=== PATIENT | male | born 1965 | race Caucasian/White ===

== ENCOUNTER 2020-10-23 10:08 | Emergency (ER) | payer OTHER, SELFPAY ==
[2020-10-23 10:09] VITALS: BP 106/85; PULSE 85; RESP 20; TEMP 36.6; O2SAT 97; BMI 45.1
--- NOTE | 2020-10-23 10:20 | ED.VIS.GEN ---
History of Present Illness Chief Complaint: Abscess Informant: Patient Onset: Month(s) Context: Gradual Onset Timing: Continuous Current Severity: Moderate Maximum Severity: Moderate Narrative: The patient is a 55-year-old male with history of hepatitis C who presents to the emergency department with bleeding skin tag. Patient states he has had a 2 cm area on his back for years. He states that over the past month, he has had more bleeding. He states every time he bumps it or moves, the area will start to bleed. He denies any fevers or chills. He denies any systemic complaints. He states [facility], but has not been able to have another follow-up appointment. He is otherwise been in his normal state of health. Prior similar symptoms: No Recent Illness/Hospitalization: No Past Medical History - Allergies and Home Meds Allergies/Adverse Reactions: Allergies amoxicillin Allergy (Verified 10/23/20 10:12) Rash cephalexin [From Keflex] Allergy (Verified 10/23/20 10:12) Hives metformin Allergy (Verified 10/23/20 10:12) NEEDS FOLLOW-UP [facility] Phys[facility]: [facility] [Primary [facility] Provider] - Prior records reviewed: Yes Past Medical History: - - Hepatitis C, COPD Surgical History: noncontributory Review of Systems General: Denies: Chills, Fever, Sweats Eyes: Denies: Visual changes - bilaterally, Diplopia ENT: Denies: Rhinorrhea, Sore throat Cardiovascular: Denies: Chest pain, Palpitations Respiratory: Denies: Dyspnea, Cough, Dyspnea on exertion Gastrointestinal: Denies: Abdominal pain, Nausea, Vomiting, Diarrhea, Melena, Hematochezia Genitourinary: Denies: Dysuria, Hematuria, Frequency Musculoskeletal: Denies: Back pain, Extremity Pain Skin: Denies: Rash, Wounds Neurological: Denies: Headache, Weakness, Numbness Physical Exam Vital Signs/Narrative: Vital Signs Temp Pulse Resp BP Pulse Ox 10/23/20 10:09 97.8 F 85 20 H 106/85 H 97 Inital Vital Signs reviewed: Yes General: Well nourished, Well developed, No Acute Distress Head: Normocephalic, Atraumatic Eyes: Perrl, EOMI ENT: Moist mucous membranes, No rhinorrhea Neck: Supple, Nontender Cardiovascular: Regular rate, Regular rhythm, No murmurs Respiratory: No distress, CTA bilaterally, Chest nontender Abdomen: Soft, Nontender, Nondistended, Normal bowel sounds Back: Nontender, Normal Inspection Extremities: Nontender, No edema Skin: Normal color, - - The patient has a large vascular skin tag on his left posterior scapular area. It is approximately 2 cm and ovoid. It is well elevated from the skin. There is some friability and some bleeding. There is no pulsatile bleeding. The skin surrounding is well-appearing. Neurological: Alert, Oriented x3, Cranial nerves II-XII grossly intact, Normal Strength, Normal Sensation Psychological: Normal affect, Normal Mood Diagnostic/Tx/Re-eval - Medical Decision Making The patient presents with a bleeding skin tag. He states he had it for years. It is 2 cm ovoid with vascularization. There is some thrombotic area. The skin around is macerated from his bandages. [facility], but this tag does continue to bleed. I discussed options with the patient. He was agreeable with tying this off. The area was prepped with chlorhexidine. Lidocaine with epinephrine was injected locally in ring fashion. 3-0 Vicryl was used. Multiple loops were made. It was then tied. I expressed all remaining blood from the tag and there was no evidence of revascularization. I am going to give the patient a specimen cup so when it does fall off he can follow with a sample to his appointment. He is comfortable with this plan of care. Impression 1. Bleeding skin tag ED Disposition - Plan for ED Patient: Instructions: ED Ulcer Skin Simple [facility]: [facility] [[facility] Provider[facility] -
[2020-10-23] MEDS: Lidocaine 1% /Epi 1:100 (20ml) 20 ML Vial 10 ML INFILT (10:50)
== END 2020-10-23 11:03 | disposition home or self-care (01) ==
LOC: ED 10:53
PROVIDERS: Emergency Provider Emergency Medicine
DX: L91.8 Other hypertrophic disorders of the skin (principal); J44.9 Chronic obstructive pulmonary disease, unspecified; B19.20 Unspecified viral hepatitis C without hepatic coma
CPT/HCPCS: 99282